=== PATIENT | male | born 1990 | race Two or more races ===

== ENCOUNTER 2024-07-18 06:32 | Day surgery (SDC) | payer MEDICAID, SELFPAY ==
--- NOTE | 2024-06-19 14:40 | ESHP_ITS ---
RE: NIRAV FLORES : 1990 DATE OF ADMISSION: 06/20/2024 HISTORY OF PRESENT ILLNESS: Nirav Flores is a 34-year-old male desiring bilateral vasectomy. He has six children. ALLERGIES: AMOXICILLIN. PAST SURGICAL HISTORY: None. PAST MEDICAL HISTORY: There is no history of diabetes mellitus or no history of hypertension. MEDICATIONS: None. PHYSICAL EXAMINATION: HEENT: Normal. NECK: Supple. LUNGS: Clear. CARDIOVASCULAR: Heart sounds are normal. ABDOMEN: Soft without any organomegaly. No guarding. No rigidity. EXTREMITIES: Normal. GENITOURINARY: Phallus is normal. Testis are down in scrotum. IMPRESSION: The patient is desiring bilateral vasectomy for family planning. PLAN: Bilateral vasectomy. Planned procedure, risks and complications have been discussed with the patient. The patient has understood them and agreed to proceed. DT: 12:50:58 TT: 14:39:00 Ref: [id number] - TID: [id number]
[2024-07-16 07:22] VITALS: BMI 32.5
[2024-07-16 08:10] LABS: Basophils # (Auto) 0.1 Thou/mm3 (0.0-0.2); Basophils % (Auto) 1 % (0-2.5); Eosinophils # (Auto) 0.1 Thou/mm3 (0.0-0.5); Eosinophils % (Auto) 2 % (0-10); Hematocrit 46.3 % (41.0-53.0); Hemoglobin 16.1 g/dL (13.5-16.0); Immature Granulocytes % (Auto) 0 % (0-0); Immature Granulocytes Auto 0.02 Thou/mm3 (0.00-0.00); Lymphocytes # (Auto) 1.7 Thou/mm3 (1.0-4.8); Lymphocytes % (Auto) 34 % (10-50); Mean Corpuscular HGB Conc 34.8 g/dl (31.0-37.0); Mean Corpuscular Hemoglobin 29.3 pg (25.0-35.0); Mean Corpuscular Volume 84 fL (80-100); Monocytes # (Auto) 0.5 Thou/mm3 (0.0-0.8); Monocytes % (Auto) 9 % (0-12); Neutrophils # (Auto) 2.6 Thou/mm3 (1.8-7.7); Neutrophils % (Auto) 53 % (37-80); Nucleated Red Blood Cell % 0 /100 WBC (0); Platelet Count 218 Thou/mm3 (140-440); RDW Standard Deviation 37.7 fL (35.1-43.9); White Blood Count 4.8 Thou/mm3 (3.8-10.6)
[2024-07-16 08:40] LABS: Anion Gap 7 (7-16); BUN/Creatinine Ratio 14 Ratio (12-20); Blood Urea Nitrogen 14 mg/dL (9-23); Carbon Dioxide 30.4 mMol/L (20.0-31.0); Chloride 102 mMol/L (98-107); Estimated Creatinine Clearance 118.9 mL/min (>60); Glucose 101 mg/dL (74-106); Osmolality,Calculated 278 (275-295); Potassium 4.2 mMol/L (3.4-5.1); Sodium 139 mMol/L (136-145); eGFR > 60 See Note
--- NOTE | 2024-07-17 09:41 | ESHP_ITS ---
RE: NIRAV FLORES : 1990 DATE OF ADMISSION: 07/18/2024 HISTORY OF PRESENT ILLNESS: Nirav Flores is a 34-year-old gentleman desiring bilateral vasectomy. The patient has six children. PAST SURGICAL HISTORY: None. ALLERGIES: AMOXICILLIN. PAST MEDICAL HISTORY: There is no history of diabetes mellitus or hypertension. HOME MEDICATIONS: None. PHYSICAL EXAMINATION: HEENT: Normal. NECK: Supple. LUNGS: Clear. CARDIOVASCULAR: Heart sounds are normal. ABDOMEN: Soft without any organomegaly. No guarding. No rigidity. EXTREMITIES: Normal. IMPRESSION: The patient is desiring bilateral vasectomy for family planning. PLAN: Bilateral vasectomy. Planned procedure, risks and complications have been discussed with the patient. The patient has understood them and agreed to proceed. DT: ::40 TT: 09:40:00 Ref: [id number] - TID: [id number]
[2024-07-18] VITALS (7 sets, daily range): BP systolic 117–137; BP diastolic 67–98; PULSE 64–81; RESP 12–20; TEMP 36.2–36.9; O2SAT 96–99; BMI 35.2
[2024-07-18] MEDS: RINGERS LACTATED 1000 ML 1,000 ML 20 ML IV (06:56)
--- NOTE | 2024-07-18 07:30 | CHAP ---
Patient expressed gratitude for prayer before their procedure.
--- NOTE | 2024-07-18 09:46 | SUR.PHASEI ---
[id number] patient arrived to recovery resting comfortably in [facility], on oxygen 8L via oxy mask with an oral airway in place, breathing unlabored, vital signs stable, dressing intact to groin area; sutures, fluffs, scrotal support, no bleeding noted, ice pack applied per MD order, lung sounds clear upon auscultation, bilateral radial pulses present when palapted, report received from Keyonna PEREZ/Dr. Stack and Omer OBRIEN
--- NOTE | 2024-07-18 10:38 | SUR.PHASEII ---
[id number] Patient meets discharge criteria from recovery, awake and alert, breathing unlabored, vital signs stable, denies pain, dressing intact; no bleeding noted, patient ate a jello, 1/2 an apple sauce and drinking grape juice; tolerating well, denies nausea, patient assisted with dressing into his clothing by his , discharge instructions given to patient and patients , signed discharge instructions. Patient given all his belongings prior to discharge, transported via wheelchair and left in a private vehicle.
--- NOTE | 2024-07-18 19:22 | ESOP_ITS ---
RE: NIRAV FLORES : 1990 DATE OF OPERATION: 07/18/2024 PREOPERATIVE DIAGNOSIS: The patient is desiring bilateral vasectomy for family planning. POSTOPERATIVE DIAGNOSIS: The patient is desiring bilateral vasectomy for family planning. PROCEDURE PERFORMED: Bilateral vasectomy. ANESTHESIA: General. INDICATION: The patient is a 34-year-old male desiring bilateral vasectomy for family planning. Planned procedure, risks and complications have been discussed with the patient. The patient understood them and agreed to proceed. After the patient was brought to the operating table under adequate general anesthesia, in supine position, parts were prepped and draped in the usual fashion. The right vas deferens was made subcutaneous. A small incision was then made over the vas deferens. Dissection was then carried out. A small segment of the vas deferens was isolated. Two clamps were placed and the segment between the clamps was excised. The ends of the vas deferens were fulgurated and ligated using 3-0 chromic gut sutures. Complete hemostasis was obtained. Skin wound was closed with interrupted sutures of 3-0 chromic catgut. In the similar fashion, the left-sided vasectomy was also done. Local anesthetic was injected at the site of skin on both sides. The patient was then transferred to the recovery room in a satisfactory condition having tolerated the entire procedure well. Sponge count and needle count at the end of the procedure were found to be correct. Estimated blood loss was approximately 2 mL. DT: 09:51:33 TT: 19:20:00 Ref: [id number] - TID: [id number]
== END 2024-07-18 10:38 | disposition home or self-care (01) ==
PROVIDERS: PCP Family Medicine; Referring Provider Surgery; Visit Provider Surgery
PROC: (CPT 55250; principal; 2024-07-18 08:30)
DX: Z30.2 Encounter for sterilization (principal)
CPT/HCPCS: 55250; 36415; 80048; 85025; A4649; J0690; J1100; J1885; J2250; J2405; J2704; J3010; J7120; L8330; A9270